=== PATIENT | female | born 1965 | race Caucasian/White ===

== ENCOUNTER 2021-12-12 05:16 | Observation (INO) ==
--- NOTE | 2021-11-21 10:42 | PAT Medication Instructions ---
Medication Instructions Date of Service November 21, 2021 Home Medications bupropion HCl 150 mg 24 hr tablet, extended release (Wellbutrin XL) 150 mg PO HS citalopram 20 mg tablet (Celexa) 20 mg PO HS levothyroxine 150 mcg tablet 150 mcg PO QAM losartan 25 mg tablet (Cozaar) 25 mg PO HS montelukast 10 mg tablet (Singulair) 10 mg PO HS multivitamin 1 tab PO HS vitamin B complex 1 tab PO QPM semaglutide (Ozempic) 0.5 mg SUBCUT .weekly aspirin 81 mg tablet,delayed release 81 mg PO QAM Continue as directed semaglutide (Ozempic) 0.5 mg SUBCUT .weekly Take morning of surgery With a small sip of water, OTHERWISE NOTHING TO EAT OR DRINK AFTER MIDNIGHT: levothyroxine 150 mcg tablet 150 mcg PO QAM aspirin 81 mg tablet,delayed release 81 mg PO QAM (unless surgeon directed otherwise) Take evening before surgery bupropion HCl 150 mg 24 hr tablet, extended release (Wellbutrin XL) 150 mg PO HS citalopram 20 mg tablet (Celexa) 20 mg PO HS losartan 25 mg tablet (Cozaar) 25 mg PO HS montelukast 10 mg tablet (Singulair) 10 mg PO HS multivitamin 1 tab PO HS vitamin B complex 1 tab PO QPM Other Notes If you have any questions please call us at [phone] or [phone] or [phone] or [phone]
--- NOTE | 2021-11-22 09:43 | Anesthesiology Consultation ---
Date of Service November 22, 2021 Assessment & Plan (1) Encounter for pre-operative examination: Chart Review Chart Review: Acceptable Risk for Surgery (pending preop Covid testing results ) and Patient seen in Pre Admission Testing - Check test AM DOS - Check BSG AM DOS Preop Covid testing will be done five days prior to surgery (due to weekend). Pt is also being admitted to hospital and will need Brennan DOS due to possible pt cohorting. Brennan order placed; OR aware. Per PAT appt on 11/21/21, patient denies any recent travel or large group activities. No known Covid positive exposures or Covid related symptoms. No known Covid infection in the past 90 days. Pt is vaccinated for Covid.. Preop Covid testing scheduled 12/07/21 = will await results. Educated on importance of self quarantining, social distancing and wearing mask in public for the patient one week prior to surgery and after Covid testing done Left ankle lateral malleolus ORIF 05/08/19= Done under [facility] with LMA #4. Teaching & Discussion Pre-Anesthesia Teaching/Discussion Notes: Instructed NPO after midnight before surgery,except medications with 15 cc of water. Medication instructions provided according to the PAT guidelines. History Surgery Operation Date: 12/12/21 10:40 Proposed Procedures p Left Total Knee Arthroplasty - Anthony Mast, Height/Weight Height: 5 ft 9 in Weight: 160.7 kg Allergies Allergy/AdvReac Type Severity Reaction Status Date / Time bee venom protein (honey bee) Allergy Severe Anaphylaxis Verified 11/20/21 16:11 Medications Home Medications Medication Instructions Recorded Confirmed Last Taken bupropion HCl 150 mg 24 hr tablet, 150 mg PO HS 05/06/19 11/20/21 05/07/19 22:00 extended release (Wellbutrin XL) citalopram 20 mg tablet (Celexa) 20 mg PO HS 05/06/19 11/20/21 05/07/19 22:00 levothyroxine 150 mcg tablet 150 mcg PO QAM 05/06/19 11/20/21 05/08/19 05:00 losartan 25 mg tablet (Cozaar) 25 mg PO HS 05/06/19 11/20/21 05/07/19 08:00 montelukast 10 mg tablet 10 mg PO HS 10/11/20/21 05/07/19 22:00 (Singulair) multivitamin 1 tab PO HS 05/06/19 11/20/21 05/07/19 22:00 vitamin B complex 1 tab PO QPM 05/06/19 11/20/21 05/07/19 22:00 aspirin 81 mg tablet,delayed 81 mg PO QAM 11/20/21 11/20/21 Unknown release Wheeled Walker #1 ea 11/22/21 11/22/21 Unknown semaglutide 1 mg/dose (4 mg/3 mL) 1 mg SUBCUT .WEEK ml 11/22/21 11/22/21 Unknown subcutaneous pen injector Past Medical History Medical History (Updated 11/22/21 @ 10:10 by Nai Medeiros PA-C) Depression with anxiety GERD (gastroesophageal reflux disease) Well controlled and stable Hypertension Pt denies/has no recollection of HTN- on low dose Losartan for kidney protec tion Hypothyroidism Kidney stones No recent issues DEVIN (obstructive sleep apnea) Mild per recent sleep study per patient- in the process of getting CPAP Osteoarthritis Prediabetes On Ozempic Skin cancer UPPER THIGH AREA- REMOVED Exercise / Class Metabolic Activity III < 4 Walking/Shop/Light housework (ONE FLIGHT OF STIARS- NO CHEST PAIN, MILD SOB ) Past Family History Family History Father Family history of diabetes mellitus Brother Family history of diabetes mellitus Other No family history of adverse response to anesthesia Past Surgical History Surgical History H/O foot surgery RT FOOT PLANTAR FASCIITIS History of arthroscopy LEFT KNEE History of open reduction and internal fixation (ORIF) procedure left ankle History of tooth extraction Nausea and vomiting after administration of anesthetic agent Past Anesthesia History No Hx of Anesthesia Complications (WITH EXCEPTION TO PONV X 1 (WITH KNEE SCOPE)- NO ISSUES WITH 2019 ANKLE SURGERY ) and No Family Hx of Anesthesia Complications (WITH EXCEPTION TO MOTHER- PONV ) History of PONV History of PONV (improved when pre medicated with IV anti-nausea medication ) and Hx of Motion Sickness Social History Smoking Status: Never smoker Do You Dip or Chew Tobacco: No Hx Alcohol Use: Yes Alcohol type: beer and wine alcohol intake frequency: a few times a month Hx Substance Use: No substance use type: does not use Review of Systems Chronic GILLESPIE- stable and mild Hx of sleep study recently- mild DEVIN - in the process of getting a CPAP Patient denies chest pain, shortness of breath at rest, cough, wheezing, palpitations. No hx of seizures, stroke, [place]. No hx of blood clots or blood transfusions Physical Exam Vital Signs VITALS BP 131/89 P 81 TEMP 97.9 SP02 97% RESP 16 Constitutional no acute distress ENMT Mouth: no TMJ clicking Thyromental Distance: > or= 3.5 Finger Breadths (3.5) Mallampati Class: II Four teeth extracted (not enough room in mouth) Neck neck extension not limited Respiratory normal respiratory effort; no respiratory distress Auscultation: lungs clear to auscultation bilaterally; no wheezes Cardiovascular Rate/Rhythm: regular rate and regular rhythm Heart Sounds: no murmur Vessels: no carotid bruit Musculoskeletal Spine: no pain with cervical ROM Extremities: extremities normal to inspection Psychiatric Orientation: alert Lab Results Anesthesia Preop Results Results Anesthesia Widget: WBC 7.70 K/uL (4.8-10.8) 11/22/21 Hgb 14.1 g/dL (12.0-16.0) 11/22/21 Hct 43.1 % (37-47) 11/22/21 Plt 412 K/uL (130-400) H 11/22/21 Na 138 mmol/L (136-145) 11/22/21 K 4.3 mmol/L (3.5-5.1) 11/22/21 Cl 104 mmol/L (98-107) 11/22/21 CO2 28 mmol/L (21-32) 11/22/21 BUN 21 mg/dl (6-23) 11/22/21 Creat 0.98 mg/dl (0.6-1.2) 11/22/21 Glucose Level 98 mg/dl (70-99(Fasting)) 11/22/21 PT 10.5 Seconds (9.0-12.0) 11/22/21 PTT 28.2 Seconds (21.0-31.0) 11/22/21 INR 1.0 (0.9-1.1) 11/22/21 HA1c 5.9 % (4.5-5.6) H 11/22/21 Blood Type B Positive 11/22/21 Antibody Screen NEGATIVE 11/22/21 Testing Electrocardiogram Date: 11/22/21 Findings: + NSR @ (75bpm ) unconfirmed Chest X-Ray Date: 11/22/21 Findings: + NAD
[2021-12-12] MEDS ORDERED: Ketorolac (*for OR use only*) 30 MG, dexAMETHasone 4 MG, KETAMINE HCL (**OR use only) 1... INFIL SCH (06:00)
[2021-12-12] MEDS ORDERED: LR 500ML BOLUS, THEN 15ML/HR IV SCH (06:00)
[2021-12-12] MEDS ORDERED: FAMOTIDINE 20 MG TAB PO SCH (06:00)
[2021-12-12] MEDS ORDERED: ACETAMINOPHEN 500 MG TAB PO SCH (06:00)
[2021-12-12] MEDS ORDERED: LR 60ML/HR IV SCH (06:00)
[2021-12-12] MEDS ORDERED: GABAPENTIN 300 MG CAP PO SCH (06:00)
[2021-12-12] MEDS ORDERED: dexAMETHasone 4 MG TAB PO SCH (06:00)
[2021-12-12] MEDS ORDERED: TRANEXAMIC ACID 1,000 MG **IV Intra-op IV SCH (06:00)
[2021-12-12] MEDS ORDERED: TRANEXAMIC ACID 1,000 MG **IV Pre-op IV SCH (06:00)
[2021-12-12 06:16] LABS: Pregnancy Test, Serum Negative (Negative)
[2021-12-12] MEDS ORDERED: BUPIVACAINE 0.5 % 5 MG/1 ML PF 10ML VIAL ONE (06:20)
[2021-12-12] MEDS ORDERED: ROPIVACAINE 0.5% 5 MG/ML 30 ML VIAL ONE (06:20)
[2021-12-12] MEDS ORDERED: EPINEPHrine INJ 1 MG/ML AMP ONE (06:20)
[2021-12-12] MEDS ORDERED: PROPOFOL IV EMULSION 10 MG/ML 20 ML VIAL IV ONE ×3 (06:25→08:06)
[2021-12-12] MEDS ORDERED: LIDOCAINE 2% 2 ML VIAL/AMP(20MG/ML) INFIL ONE ×2 (06:25→08:06)
[2021-12-12] MEDS ORDERED: MIDAZOLAM HCL 1 MG/ML 2ML VIAL ONE ×2 (06:26→07:23)
[2021-12-12] MEDS ORDERED: fentaNYL citrate 100 MCG/2 ML VIAL ONE (06:26)
[2021-12-12] MEDS ORDERED: PHENYLEPHRINE HCL 10 MG/ML VIAL ONE (06:37)
[2021-12-12] MEDS ORDERED: ORTHO JOINT ANESTHETIC ONE (06:41)
--- NOTE | 2021-12-12 06:43 | History & Physical Bridge Note ---
Date of Service December 12, 2021 History & Physical Bridge Note I have examined the patient, reviewed the History & Physical and in the interval since the performance of the History & Physical I have noted the following changes of clinical significance: no changes noted
[2021-12-12] MEDS ORDERED: ePHEDrine sulfate 50 MG/ML AMP IV PRN (07:45)
[2021-12-12] MEDS ORDERED: fentaNYL citrate 100 MCG/2 ML VIAL IV PRN (07:45)
[2021-12-12] MEDS ORDERED: LABETALOL HCL IV 5 MG/ML 20ML IV PRN (07:45)
[2021-12-12] MEDS ORDERED: ATROPINE SULFATE 0.1 MG/ML 10ML SYR IV PRN (07:45)
[2021-12-12] MEDS ORDERED: HYDROmorphone INJ 1 MG/ML SYRINGE IV PRN (07:45)
[2021-12-12] MEDS ORDERED: ONDANSETRON INJ 2 MG/ML 2 ML VIAL IV PRN ×2 (07:45→09:58)
[2021-12-12] MEDS ORDERED: PHENYLEPHRINE 100MCG/ML 5ML SYR IV PRN (07:45)
[2021-12-12] MEDS ORDERED: GLYCOPYRROLATE 0.2 MG/ML VIAL ONE (08:06)
--- NOTE | 2021-12-12 08:34 | Operative Report ---
PG Post Operative Report Pre & Post Diagnosis Operation Date: 12/12/21 07:00 Pre-Op Diagnosis: Degenerative Joint Disease Left Knee Post-Op Diagnosis: Degenerative Joint Disease Left Knee I identified the patient and participated in the time-out.: Yes Procedure Operation Date: 12/12/21 07:00 Actual Procedures p Left Total Knee Arthroplasty(Left) - Anthony Mast DO Surgeon Anthony Mast DO Insurance Operations Rep Anthony Piedra PAC Estimated Blood Loss 10 Findings Consistent with Post-Op Diagnosis Specimens Left femoral and tibial bone Complications none Disposition Disposition: Recovery Room Indications Amaris is a pleasant 56-year-old female who is dealing with chronic increasing left knee pain. X-rays and clinical examination were diagnostic for advanced osteoarthritis of the left knee. After failing conservative treatment, she elected proceed with a left total knee arthroplasty. Description of Procedure Implants used: I used a Alber Persona total knee arthroplasty system with a size 9 standard PS femur, E tibia with a 30 mm stem extension, 31 round patella, and a size 12 CPS polyethylene bearing. All components were cemented in place with Biomet cement. Amaris arrived [facility] for the above procedure. She was seen in the preoperative holding area and the operative extremity was identified and signed. She was given a preoperative antibiotic, TXA, a spinal anesthetic and an adductor nerve block. She was taken back to the operating room and laid on the table in supine position. She was given basic sedation. The operative knee was then prepped and draped in sterile fashion. A timeout was done, and the patient and the operative extremity was properly identified. A midline incision was made directly over the patella. Dissection was taken down to the extensor mechanism. A subvastus arthrotomy was used. The medial retinaculum was released and the fat pad was mostly excised. The knee was flexed and the ACL, PCL, and meniscus were removed. A drill was sent down the center of the femoral canal followed by an intramedullary vandana. Off that vandana a distal femoral cutting block was placed. 9 mm was resected off the distal femur at 5 of valgus. A posterior referencing AP sizing guide was then placed on the distal femur. The femur measured to be a size 9. 2 drill holes were placed in 3 of external rotation. A 4-in-1 cutting block was then impacted into place. Anterior, posterior, and chamfer cuts were then made. The proximal tibia was then exposed. An external tibial alignment guide was placed. A tibial cut guide was then anchored in place and the proximal tibia was then resected. The posterior aspect of the knee was then opened up and any additional meniscus fragments and osteophytes were removed. The tibia measured to be a size E. The tibial plate was then placed in the appropriate rotation and the tibia was drilled and punched. Trial components were then placed. I used a size 12 CPS polyethylene insert. The knee was brought through a full range of motion and felt to be stable. The peg holes for the femoral component were then drilled. The patella was then everted and 9 mm was resected off the posterior aspect of the patella. The patella measured to be a size 31. 3 peg holes were then drilled. A trial patella was placed. The knee was once again brought through a full range of motion and felt to be sta ble. Trial components were then removed. The surrounding soft tissues were injected with 100 cc of an orthopedic pain control cocktail. All components were then cemented into place with Biomet cement. The final polyethylene insert was then snapped into place. Once cement was dry the tourniquet was deflated. Hemostasis was obtained. A dilute betadyne lavage was then done for 3 minutes. The joint was then irrigated with normal saline solution. The subvastus arthrotomy was then closed with #1 Vicryl suture. The skin was closed with 2-0 Vicryl, 3-0V lock suture, and katia. A soft compressive dressing was placed. She was then transferred to a hospital bed and taken to the postanesthesia care unit in stable condition. She tolerated the procedure well. Anthony Piedra PA-C, was present for the entire procedure. He was critical for patient positioning, prepping, draping, retraction exposure, wound closure and application of sterile dressing. I attest to the content of the Intraoperative Record and any orders documented therein. Any exceptions are noted below.
--- NOTE | 2021-12-12 09:18 | Anesthesiology Progress Note ---
Date of Service December 12, 2021 Anesthesia Post Procedure Vital Signs Vital Signs: Temp Pulse Pulse Resp BP Pulse Ox 12/12/21 09:15 81 17 106/65 95 12/12/21 09:05 92 H 16 128/66 95 12/12/21 08:57 36.3 C L 100 H 18 103/62 97 12/12/21 05:44 37 C 106 H 20 145/88 H 96 Transfer of Care Handoff Completed per policy Notes Mental Status: alert / awake / arousable Patient Amnestic to Procedure: Yes Nausea / Vomiting: adequately controlled Pain: adequately controlled Airway Patency, RR, SpO2: stable & adequate BP & HR: stable & adequate Hydration State: stable & adequate Neuraxial Anesthesia: was administered and sensory block is resolving Anesthetic Complications: no major complications apparent and Pt Satisfied with anesthetic care
--- NOTE | 2021-12-12 09:19 | XRay Report ---
XR knee LT 1 or 2V routine CLINICAL HISTORY: Surgical Post Op TECHNIQUE: 2 views of the left knee were obtained. Comparison: Comparison is made to femur radiograph 08/31/2012 FINDINGS: Patient is status post total knee arthroplasty with expected postsurgical changes including soft tiss ue swelling, subcutaneous emphysema, and surgical staple placement. No periarticular lucency or hardw are fracture is seen IMPRESSION: Expected postoperative appearance status post total knee arthroplasty. ACT 112: Negative or not required by law. Electronically signed by: Mehdi Woodruff M.D. 12/12/2021 9:18 AM
[2021-12-12] MEDS ORDERED: KETAMINE 50 MG/5 ML SYRINGE ONE (09:57)
[2021-12-12] MEDS ORDERED: METOCLOPRAMIDE HCL INJ 5 MG/ML 2 ML VIAL IV PRN (09:58)
[2021-12-12] MEDS ORDERED: HYDROmorphone INJ 0.5 MG/0.5 ML SYR IV PRN (09:58)
[2021-12-12] MEDS ORDERED: MAGNESIUM HYDROXIDE SUSP 30 ML UDC PO PRN (09:58)
[2021-12-12] MEDS ORDERED: bisacodyL 10 MG SUPP PR PRN (09:58)
[2021-12-12] MEDS ORDERED: NALOXONE HCL 0.4 MG/1 ML VIAL/CARP IV PRN (09:58)
[2021-12-12] MEDS: SODIUM CHLORIDE 0.9% 1000ML 1,000 ML IV SCH ×2 (10:18→19:52)
[2021-12-12] MEDS: DOCUSATE SODIUM 100 MG CAP PO SCH ×2 (11:23→22:03)
[2021-12-12] MEDS: MULTIVITAMIN TAB PO SCH (11:23)
[2021-12-12] MEDS: KETOROLAC 30 MG/ML VIAL IV SCH ×3 (11:24→23:37)
[2021-12-12] MEDS: ACETAMINOPHEN 500 MG TAB PO SCH ×2 (13:17→21:57)
[2021-12-12] MEDS: ceFAZolin 2000MG 2,000 MG/15 ML SYR IV SCH ×2 (15:47→23:38)
[2021-12-12] MEDS ORDERED: SENNA 8.6 MG TAB PO SCH (21:00)
[2021-12-12] MEDS ORDERED: LOSARTAN POTASSIUM 25 MG TAB PO SCH (21:00)
[2021-12-12] MEDS ORDERED: buPROPion XL 150 MG TABCR PO SCH (21:00)
[2021-12-12] MEDS ORDERED: CITALOPRAM 20 MG TAB PO SCH (21:00)
[2021-12-12] MEDS ORDERED: MONTELUKAST SODIUM 10 MG TABLET PO SCH (21:00)
[2021-12-12] MEDS: oxyCODONE HCL IR 5 MG TAB (IMMEDIATE RELEASE) PO PRN (23:37)
[2021-12-13] MEDS: KETOROLAC 30 MG/ML VIAL IV SCH (05:05)
[2021-12-13] MEDS: ACETAMINOPHEN 500 MG TAB PO SCH (05:05)
[2021-12-13] MEDS ORDERED: LEVOTHYROXINE SODIUM 150 MCG TABLET PO SCH (06:30)
--- NOTE | 2021-12-13 06:38 | Orthopedic Progress Note ---
Date of Service December 13, 2021 Assessment & Plan (1) Status post left knee replacement: Overall she is doing fairly well. She is not having much pain in the left knee. She is on aspirin for DVT prophylaxis. She will be seen by physical therapy today for ambulation and range of motion exercises. She can be discharged home later today. She will follow-up with orthopedics in 2 weeks. Josh Glez was seen and examined at bedside this morning. Overall she is doing fairly well. She is not having much pain in the left knee. She has been up and ambulating in the hallways. She has no complaints. Review of Systems All systems reviewed & are unremarkable except as noted in HPI & below. Physical Exam On physical examination of the left knee, the dressing is clean and dry. Her leg is out in full extension. She has active dorsiflexion plantarflexion of her left ankle.. Results & Data Results & Data Laboratory Results . Diagnostic Findings Postoperative x-rays of the left knee show the prosthesis to be in anatomic alignment without any evidence of fracture, desiccation, or loosening. PG Care Time/CCT Total # of Minutes Spent Total Time Spent with Patient: Total time spent is greater than 50% in coordination of care (as documented) at patient's floor/unit and/or counseling patient: Coding Level of Care Code 43023 Post Operative Follow-Up Diagnoses Status post left knee replacement Z96.652
--- NOTE | 2021-12-13 06:39 | Discharge Summary ---
Date of Service December 13, 2021 Principal Diagnosis Same as "Discharge Diagnosis" noted below under Discharge Instructions. Discharge Exam On physical examination of the left knee, the dressing is clean and dry. Her leg is out in full extension. She has active dorsiflexion plantarflexion of her left ankle.. Discharge Data Procedures Performed Operation Date: 12/12/21 07:00 Actual Procedures p Left Total Knee Arthroplasty(Left) - Anthony Mast DO Ordered Studies 12/12/21 05:00 US - OR guided needle placemen Routine Hospital Course (1) Status post left knee replacement: On December 12, 2021 Amaris arrived at [facility] and underwent a left knee replacement without complication. She had a spinal anesthetic. Postoperatively she was started on aspirin for DVT prophylaxis and transferred to the general orthopedic floors. Her hospital course was uneventful. On postop day #1, her vital signs are stable and her pain was well controlled. She was able to participate well with physical therapy doing ambulation and range of motion exercises. She was then discharged home. She will follow-up with orthopedics in 2 weeks. PG Care Time/CCT Total # of Minutes Spent Total Time Spent with Patient: Total time spent is greater than 50% in coordination of care (as documented) at patient's floor/unit and/or counseling patient: Discharge Plan Discharge Items Patient Disposition: Home - Home Health Services Reason For Visit: DJD Left Knee Discharge Diagnosis: Left knee replacement Activity: As commented below Non-emergency contact: Surgeon Call non-emergency contact if: your wound has increased redness and your wound has increased drainage Follow-up/Referrals: Familia Cox MD [Primary Care Provider] - Diet: Regular Addtl Attending Provider Instructions: Activity and Therapy Recommendations: * If you are using [facility] then therapy will be provided at your home until they feel you have accomplished all of your goals. * If you are using [facility] then Physical Therapy will be provided until they feel you are ready to start Outpatient Physical Therapy. * If you are not using home therapy then Outpatient Physical Therapy should start about 3-5 days from your day of surgery. Therapy will last about 6-10 weeks * It is important not to put a pillow under your knee when you are relaxing or sleeping. It is just as important to make sure you are getting your knee perfectly straight as it is to regain your knee bend. * You were shown a series of exercises in the hospital. Do these exercises three times each day including the exercises you were shown in physical therapy. * Get up and walk several times each day. For the first four weeks, try not to stand or walk for more than one hour at a time. If you do stand or walk for more than one hour, you will not hurt anything, but your leg will likely swell. * As you feel comfortable, you may change from the walker or crutches to a cane and then to independent walking. Medications: * Narcotic You will likely be sent home from the hospital with a prescription for the narcotic pain medication that worked best throughout your stay. * Aspirin Most patients will be required to take Aspirin 81mg twice a day for 6 weeks after surgery. This is obtained [id number] and a prescription is not necessary. * Other medications may be prescribed for specific circumstances. If you have any questions, please call the office at . * Resume previous home medications unless otherwise instructed TEDs/Elastic Stockings: The white elastic stockings help limit swelling and prevent blood clots from f orming in your legs.~ The more you wear them, the more they work. Wear them for six weeks. Dressing Care: The dressing can be changed after physical therapy on postop day #1. Daily dry dressing changes for a few days, especially if the incision is still draining some. If the incision is not draining then you may leave the katia open to air. If there is a little bit of drainage or if the katia are getting stuck on your clothing then cover the incision with a dry dressing. The katia will be removed at your 2 week follow-up appointment. Showering: You may shower 5 days from the day of surgery as long as the incision is no longer draining. You may shower with the katia exposed. Let soapy water run over the katia and pat them dry. Do not scrub or soak the incision. Things To Watch For: * Drainage from the incision site that occurs more than one week after your surgery. * Increased redness at the incision site. * Fever above 102 degrees Fahrenheit. * Unusual chest pain or shortness of breath. * Call [facility] at with any of the above problems Follow-Up Visit: Follow-up with Dr. Mast's PA (Anthony Piedra) 2-3 weeks after your day of surgery. He will remove your katia and answer any questions. If you have any additional questions or concerns, Dr aMst is usually in the office at the same time and will be available An appointment was probably scheduled when you signed-up for surgery in the office. If you have any questions call Office Instructions: More detailed instructions as well as Frequently Asked Questions were provided in a folder by our office when you signed-up for surgery. Please review these instructions when you get home. If you have any further questions or concerns, please feel free to call the office at [phone] Pending Studies at Discharge: No Stand-Alone Forms: [facility] Medications and DC Order Prescriptions: New oxycodone-acetaminophen 5-325 mg tablet 1 tab PO Q6H PRN (Reason: pain) Qty: 30 RF: 0 celecoxib [Celebrex] 200 mg capsule 200 mg PO BID Qty: 28 RF: 0 Continued (DME) Juanjo Walker Misc See Rx Instructions .MEDSUPPLY Qty: 1 RF: 0 semaglutide 1 mg/dose (4 mg/3 mL) pen injector 1 mg subcut .WEEK RF: 0 multivitamin Tablet 1 tab PO HS RF: 0 citalopram [Celexa] 20 mg tablet 20 mg PO HS RF: 0 levothyroxine 150 mcg tablet 150 mcg PO QAM RF: 0 losartan [Cozaar] 25 mg tablet 25 mg PO HS RF: 0 vitamin B complex Tablet 1 tab PO QPM RF: 0 montelukast [Singulair] 10 mg tablet 10 mg PO HS RF: 0 bupropion HCl [Wellbutrin XL] 150 mg tablet extended release 24 hr 150 mg PO HS RF: 0 aspirin 81 mg tablet,delayed release (DR/EC) 81 mg PO BID 42 Days Qty: 0 RF: 0 Discharge Orders: Discharge Order (Routine); Ordered 12/13/21 Ordered By: Anthony Mast Admission Data Admit Date/Time: 12/12/21 09:00 Attending Provider: Anthony Mast Admit Provider: Anthony Mast Primary Care Provider: Familia Cox
[2021-12-13] MEDS: oxyCODONE HCL IR 5 MG TAB (IMMEDIATE RELEASE) PO PRN (07:57)
[2021-12-13] MEDS: MULTIVITAMIN TAB PO SCH (07:59)
[2021-12-13] MEDS ORDERED: dexAMETHasone 4 MG TAB PO SCH (08:00)
[2021-12-13] MEDS ORDERED: ASPIRIN 81 MG ECTAB PO SCH (09:00)
[2021-12-13] MEDS: DOCUSATE SODIUM 100 MG CAP PO SCH (10:20)
== END 2021-12-13 12:49 | disposition home health service (06) ==
LOC: ASU 05:16 → 3E 05:16

== ENCOUNTER 2022-05-04 05:36 | Observation (INO) ==
--- NOTE | 2022-04-27 14:18 | Anesthesiology Consultation ---
Date of Service April 27, 2022 Assessment & Plan (1) Encounter for pre-operative examination: Chart Review Chart Review: Acceptable Risk for Surgery other knee done in November History Surgery Operation Date: 05/04/22 08:10 Proposed Procedures p Right Total Knee Arthroplasty - Anthony Mast, Height/Weight Height: 5 ft 7.5 in Weight: 149.685 kg Allergies Allergy/AdvReac Type Severity Reaction Status Date / Time bee venom protein (honey bee) Allergy Severe Anaphylaxis Verified 04/27/22 12:23 Medications Home Medications Medication Instructions Recorded Confirmed Last Taken bupropion HCl 150 mg 24 hr tablet, 150 mg PO HS 05/06/19 04/27/22 12/11/21 21:00 extended release (Wellbutrin XL) citalopram 20 mg tablet (Celexa) 20 mg PO HS 05/06/19 04/27/22 12/11/21 21:00 levothyroxine 150 mcg tablet 150 mcg PO QAM 05/06/19 04/27/22 12/12/21 04:00 losartan 25 mg tablet (Cozaar) 25 mg PO HS 05/06/19 04/27/22 12/11/21 21:00 montelukast 10 mg tablet 10 mg PO HS 05/06/19 04/27/22 12/11/21 21:00 (Singulair) multivitamin 1 tab PO HS 05/06/19 04/27/22 12/11/21 21:00 vitamin B complex 1 tab PO QPM 05/06/19 04/27/22 12/11/21 21:00 semaglutide 1 mg/dose (4 mg/3 mL) 1 mg subcut .WEEK 11/22/21 04/27/22 12/10/21 18:00 subcutaneous pen injector Wheeled Walker #1 ea 11/24/21 01/10/22 Unknown aspirin 81 mg tablet,delayed 81 mg PO BID 42 days #0 tabs 12/13/21 04/27/22 12/12/21 04:00 release Past Medical History Medical History Depression with anxiety GERD (gastroesophageal reflux disease) History of kidney stones Hypertension Pt denies/has no recollection of HTN- on low dose Losartan for kidney protection Hypothyroidism Morbid obesity DEVIN (obstructive sleep apnea) cpap>using device Osteoarthritis Prediabetes On Ozempic Skin cancer UPPER THIGH AREA- REMOVED Past Family History Family History Father Family history of diabetes mellitus Brother Family history of diabetes mellitus Other No family history of adverse response to anesthesia Past Surgical History Surgical History H/O foot surgery RT FOOT PLANTAR FASCIITIS History of arthroscopy LEFT KNEE History of open reduction and internal fixation (ORIF) procedure left ankle History of tooth extraction History of total knee replacement left Nausea and vomiting after administration of anesthetic agent Social History Smoking Status: Never smoker Hx Alcohol Use: Yes Alcohol type: beer and wine alcohol intake frequency: a few times a month substance use type: does not use Testing Laboratory Results Laboratory Tests 11/22/21 04/11/22 04/11/22 10:15 08:50 08:50 Hgb 14.5 Plt Count 365 Potassium 4.3 Creatinine 1.02 Hemoglobin A1c 5.9 H Electrocardiogram Date: 11/22/21 Findings: + NSR @ (75)
[2022-05-04] MEDS ORDERED: ACETAMINOPHEN 500 MG TAB PO SCH (06:00)
[2022-05-04] MEDS ORDERED: dexAMETHasone 4 MG TAB PO SCH (06:00)
[2022-05-04] MEDS ORDERED: TRANEXAMIC ACID 1,000 MG **IV Intra-op IV SCH (06:00)
[2022-05-04] MEDS ORDERED: ORTHO JOINT MIX INFIL SCH (06:00)
[2022-05-04] MEDS ORDERED: GABAPENTIN 300 MG CAP PO SCH (06:00)
[2022-05-04] MEDS ORDERED: LR 500ML BOLUS, THEN 15ML/HR IV SCH (06:00)
[2022-05-04] MEDS ORDERED: TRANEXAMIC ACID 1,000 MG **IV Pre-op IV SCH (06:00)
[2022-05-04] MEDS ORDERED: FAMOTIDINE 20 MG TAB PO SCH (06:00)
[2022-05-04] MEDS ORDERED: LR 60ML/HR IV SCH (06:00)
[2022-05-04] MEDS ORDERED: BUPIVACAINE 0.5 % 5 MG/1 ML PF 10ML VIAL ONE (06:31)
[2022-05-04] MEDS ORDERED: ROPIVACAINE 0.5% 5 MG/ML 30 ML VIAL ONE (06:31)
--- NOTE | 2022-05-04 06:40 | History & Physical Bridge Note ---
Date of Service May 04, 2022 History & Physical Bridge Note I have examined the patient, reviewed the History & Physical and in the interval since the performance of the History & Physical I have noted the following changes of clinical significance: no changes noted
[2022-05-04] MEDS ORDERED: ORTHO JOINT ANESTHETIC ONE (06:59)
[2022-05-04] MEDS ORDERED: MIDAZOLAM HCL 1 MG/ML 2ML VIAL ONE ×3 (07:02→08:09)
[2022-05-04] MEDS ORDERED: KETAMINE 50 MG/5 ML SYRINGE ONE (07:03)
[2022-05-04] MEDS ORDERED: fentaNYL citrate 100 MCG/2 ML VIAL ONE (07:03)
[2022-05-04] MEDS ORDERED: PROMETHAZINE HCL INJ 25 MG/ML 1 ML VIAL ONE (07:08)
[2022-05-04] MEDS ORDERED: HYDROmorphone INJ 2 MG/ML SYR/VIAL IV PRN (08:04)
[2022-05-04] MEDS ORDERED: ONDANSETRON INJ 2 MG/ML 2 ML VIAL IV PRN ×2 (08:04→11:24)
[2022-05-04] MEDS ORDERED: ePHEDrine sulfate 50 MG/ML AMP IV PRN (08:04)
[2022-05-04] MEDS ORDERED: ATROPINE SULFATE 0.1 MG/ML 10ML SYR IV PRN (08:04)
[2022-05-04] MEDS ORDERED: fentaNYL citrate 100 MCG/2 ML VIAL IV PRN (08:04)
[2022-05-04] MEDS ORDERED: GLYCOPYRROLATE 0.2 MG/ML VIAL ONE (08:41)
[2022-05-04] MEDS ORDERED: ONDANSETRON INJ 2 MG/ML 2 ML VIAL ONE (08:41)
[2022-05-04] MEDS ORDERED: PROPOFOL IV EMULSION 10 MG/ML 20 ML VIAL IV ONE ×2 (08:41→09:10)
--- NOTE | 2022-05-04 09:17 | Operative Report ---
PG Post Operative Report Pre & Post Diagnosis Operation Date: 05/04/22 08:10 Pre-Op Diagnosis: Degenerative Joint Disease Right Knee Post-Op Diagnosis: Degenerative Joint Disease Right Knee I identified the patient and participated in the time-out.: Yes Procedure Operation Date: 05/04/22 08:10 Actual Procedures p Right Total Knee Arthroplasty(Right) - Anthony Mast DO Surgeon Anthony Mast DO Contracts Administrator Anthony Piedra PA-C Estimated Blood Loss 20 Findings Consistent with Post-Op Diagnosis Specimens Right femoral and tibial bone Description of Procedure Implants used: I used a Alber Persona total knee arthroplasty system with a size 9 standard PS femur, D tibia with a 30 mm stem extension, 31 oval patella, and a size 12 CPS polyethylene bearing. All components were cemented in place with Biomet cement. Amaris arrived [facility] for the above procedure. She was seen in the preoperative holding area and the operative extremity was identified and signed. She was given a preoperative antibiotic, TXA, a spinal anesthetic and an adductor nerve block. She was taken back to the operating room and laid on the table in supine position. She was given basic sedation. The operative knee was then prepped and draped in sterile fashion. A timeout was done, and the patient and the operative extremity was properly identified. A midline incision was made directly over the patella. Dissection was taken down to the extensor mechanism. A subvastus arthrotomy was used. The medial retinaculum was released and the fat pad was mostly excised. The knee was flexed and the ACL, PCL, and meniscus were removed. A drill was sent down the center of the femoral canal followed by an intramedul elizabeth vandana. Off that vandana a distal femoral cutting block was placed. 9 mm was resected off the distal femur at 5 of valgus. A posterior referencing AP sizing guide was then placed on the distal femur. The femur measured to be a size 9. 2 drill holes were placed in 3 of external rotation. A 4-in-1 cutting block was then impacted into place. Anterior, posterior, and chamfer cuts were then made. The proximal tibia was then exposed. An external tibial alignment guide was placed. A tibial cut guide was then anchored in place and the proximal tibia was then resected. The posterior aspect of the knee was then opened up and any additional meniscus fragments and osteophytes were removed. The tibia measured to be a size D. The tibial plate was then placed in the appropriate rotation and the tibia was drilled and punched. Trial components were then placed. I used a size 12 CPS polyethylene insert. The knee was brought through a full range of motion and felt to be stable. The peg holes for the femoral component were then drilled. The patella was then everted and 9 mm was resected off the posterior aspect of the patella. The patella measured to be a size 31 oval. 3 peg holes were then drilled. A trial patella was placed. The knee was once again brought through a full range of motion and felt to be stable. Trial components were then removed. The surrounding soft tissues were injected with 100 cc of an orthopedic pain control cocktail. All components were then cemented into place with Biomet cement. The final polyethylene insert was then snapped into place. Once cement was dry the tourniquet was deflated. Hemostasis was obtained. A dilute betadyne lavage was then done for 3 minutes. The joint was then irrigated with normal saline solution. The subvastus arthrotomy was then closed with #1 Vicryl suture. The skin was closed with 2-0 Vicryl, 3-0V lock suture, and katia. A soft compressive dressing was placed. She was then transferred to a hospital bed and taken to the postanesthesia care unit in stable condition. She tolerated the procedure well. Anthony Piedra PA-C, was present for the entire procedure. He was critical for patient positioning, prepping, draping, retraction exposure, wound closure and application of sterile dressing. I attest to the content of the Intraoperative Record and any orders documented therein. Any exceptions are noted below.
--- NOTE | 2022-05-04 10:16 | Anesthesiology Progress Note ---
Date of Service May 04, 2022 Anesthesia Post Procedure Vital Signs Vital Signs: Temp Pulse Resp BP Pulse Ox O2 Del Method O2 Flow Rate 05/04/22 10:10 36.4 C L 68 17 116/78 96 Nasal Cannula 2 05/04/22 10:00 71 18 137/75 96 Oxymask 5 05/04/22 09:50 76 18 146/64 H 95 Oxymask 5 05/04/22 09:43 36.1 C L 84 18 137/73 95 Oxymask 5 05/04/22 06:09 36.7 C 100 H 20 144/87 H 95 Room Air Pain Intensity Right Leg: Pain Intensity: 3 Transfer of Care Handoff Completed per policy Notes Mental Status: alert / awake / arousable and participated in evaluation Patient Amnestic to Procedure: Yes Nausea / Vomiting: adequately controlled Pain: adequately controlled Airway Patency, RR, SpO2: stable & adequate BP & HR: stable & adequate Hydration State: stable & adequate Anesthetic Complications: no major complications apparent and Pt Satisfied with anesthetic care
--- NOTE | 2022-05-04 11:15 | XRay Report ---
RIGHT KNEE 2 VIEWS History: Right total knee arthroplasty. Degenerative arthritis. Postop. FINDINGS: The patient is status post a right total knee arthroplasty. The hardware is intact. No frac ture or dislocation. Skin katia are in place. IMPRESSION: Right total knee arthroplasty. No evidence for hardware complication. ACT 112: Negative or not required by law. Electronically signed by: Octavio Arreaga M.D. 05/04/2022 11:13 AM
[2022-05-04] MEDS ORDERED: HYDROmorphone INJ 0.5 MG/0.5 ML SYR IV PRN (11:24)
[2022-05-04] MEDS ORDERED: oxyCODONE HCL IR 5 MG TAB (IMMEDIATE RELEASE) PO PRN (11:24)
[2022-05-04] MEDS ORDERED: NALOXONE HCL 0.4 MG/1 ML VIAL/CARP IV PRN (11:24)
[2022-05-04] MEDS ORDERED: ZOLPIDEM TARTRATE 5 MG TAB PO PRN (11:24)
[2022-05-04] MEDS ORDERED: bisacodyL 10 MG SUPP PR PRN (11:24)
[2022-05-04] MEDS ORDERED: METOCLOPRAMIDE HCL INJ 5 MG/ML 2 ML VIAL IV PRN (11:24)
[2022-05-04] MEDS ORDERED: MAGNESIUM HYDROXIDE SUSP 30 ML UDC PO PRN (11:24)
[2022-05-04] MEDS: SODIUM CHLORIDE 0.9% 1000ML 1,000 ML IV SCH ×2 (11:46→21:20)
[2022-05-04] MEDS: KETOROLAC 30 MG/ML VIAL IV SCH ×3 (12:25→23:06)
[2022-05-04] MEDS: ACETAMINOPHEN 500 MG TAB PO SCH ×2 (14:08→21:25)
[2022-05-04] MEDS: ceFAZolin 2000MG 2,000 MG/15 ML SYR IV SCH ×2 (15:54→23:05)
[2022-05-04] MEDS ORDERED: CITALOPRAM 20 MG TAB PO SCH (21:00)
[2022-05-04] MEDS ORDERED: buPROPion XL 150 MG TABCR PO SCH (21:00)
[2022-05-04] MEDS ORDERED: LOSARTAN POTASSIUM 25 MG TAB PO SCH (21:00)
[2022-05-04] MEDS ORDERED: SENNA 8.6 MG TAB PO SCH (21:00)
[2022-05-04] MEDS ORDERED: MONTELUKAST SODIUM 10 MG TABLET PO SCH (21:00)
[2022-05-04] MEDS: ASPIRIN 81 MG ECTAB PO SCH (21:24)
[2022-05-04] MEDS: DOCUSATE SODIUM 100 MG CAP PO SCH (21:25)
[2022-05-05] MEDS: KETOROLAC 30 MG/ML VIAL IV SCH (05:29)
[2022-05-05] MEDS: ACETAMINOPHEN 500 MG TAB PO SCH ×2 (05:30→13:34)
--- NOTE | 2022-05-05 07:18 | Orthopedic Progress Note ---
Date of Service May 05, 2022 Assessment & Plan (1) Status post right knee replacement: Overall she is doing fairly well with her right knee. Unfortunately, she is dealing with some right leg radicular symptoms. I want her started on gabapentin and give her a titrating dose to take home. I am also going to give her a Medrol Dosepak and give her a dose of Decadron here in the hospital. She will be seen by physical therapy today for ambulation and range of motion exercises. She is on aspirin for DVT prophylaxis. If she is comfortable, she can be discharged home later today. She will follow with orthopedics in 2 weeks. Josh Glez was seen and examined at bedside this morning. She is doing fairly well with her right knee but she is having a lot of radicular pain down her right leg. She has been up and ambulating to the bathroom. She has no other complaints.. Review of Systems All systems reviewed & are unremarkable except as noted in HPI & below. Physical Exam On physical examination of the right knee, the dressing is clean and dry. Her leg is out full extension. She has active dorsiflexion plantarflexion of her right ankle.. Results & Data Results & Data Laboratory Results . Diagnostic Findings Postoperative x-rays of the right knee show the prosthesis to be in anatomic alignment without any evidence of fracture, screws, or loosening. PG Care Time/CCT Total # of Minutes Spent Total Time Spent with Patient: Total time spent is greater than 50% in coordination of care (as documented) at patient's floor/unit and/or counseling patient: Coding Level of Care Code 99824 Post Operative Follow-Up Diagnoses Status post right knee replacement Z96.651
[2022-05-05] MEDS ORDERED: dexAMETHasone 8 MG in SYRINGE 0 ML IV ONE (07:20)
--- NOTE | 2022-05-05 07:20 | Discharge Summary ---
Date of Service May 05, 2022 Principal Diagnosis Same as "Discharge Diagnosis" noted below under Discharge Instructions. Discharge Exam On physical examination of the right knee, the dressing is clean and dry. Her leg is out full extension. She has active dorsiflexion plantarflexion of her right ankle.. Discharge Data Procedures Performed Operation Date: 05/04/22 08:10 Actual Procedures p Right Total Knee Arthroplasty(Right) - Anthony Mast DO Ordered Studies 05/04/22 05:00 US - OR guided needle placemen Routine Hospital Course (1) Status post right knee replacement: On May 05, 2022 Amaris arrived at [facility] and underwent a right knee replacement without complication. She had a spinal anesthetic. Postoperatively she was started on aspirin for DVT prophylaxis and transferred to the general orthopedic floors. Her hospital course was relatively uneventful. On postop day #1 her vital signs were stable and her knee pain was well controlled. She was complaining of some radicular low back pain. She was given additional dose of Decadron and started on a titrating dose of gabapentin. She was able to participate well with physical therapy doing ambulation and range of motion exercises. She was then discharged home. She will follow-up with orthopedics in 2 weeks. PG Care Time/CCT Total # of Minutes Spent Total Time Spent with Patient: Total time spent is greater than 50% in coordination of care (as documented) at patient's floor/unit and/or counseling patient: Discharge Plan Discharge Items Patient Disposition: Home - Home Health Services Reason For Visit: POST OP Discharge Diagnosis: Right knee replacement Activity: Per Instructions section Non-emergency contact: Surgeon Call non-emergency contact if: your wound has increased redness and your wound pain has increased Follow-up/Referrals: Familia Cox MD [Primary Care Provider] - Diet: Regular Addtl Attending Provider Instructions: Activity and Therapy Recommendations: * If you are using [facility] then therapy will be provided at your home until they feel you have accomplished all of your goals. * If you are using [facility] then Physical Therapy will be provided until they feel you are ready to start Outpatient Physical Therapy. * If you are not using home therapy then Outpatient Physical Therapy should start about 3-5 days from your day of surgery. Therapy will last about 6-10 weeks * It is important not to put a pillow under your knee when you are relaxing or sleeping. It is just as important to make sure you are getting your knee perfectly straight as it is to regain your knee bend. * You were shown a series of exercises in the hospital. Do these exercises three times each day including the exercises you were shown in physical therapy. * Get up and walk several times each day. For the first four weeks, try not to stand or walk for more than one hour at a time. If you do stand or walk for more than one hour, you will not hurt anything, but your leg will likely swell. * As you feel comfortable, you may change from the walker or crutches to a cane and then to independent walking. Medications: * Narcotic You will likely be sent home from the hospital with a prescription for the narcotic pain medication that worked best throughout your stay. * Aspirin Most patients will be required to take Aspirin 81mg twice a day for 6 weeks after surgery. This is obtained [id number] and a prescription is not necessary. * Other medications may be prescribed for specific circumstances. If you have any questions, please call the office at . * Resume previous home medications unless otherwise instructed TEDs/Elastic Stockings: The white elastic stockings help limit swelling and prevent blood clots from forming in your legs.~ The more you wear them, the more they work. Wear them for six weeks. Dressing Care: The dressing can be changed after physical therapy on postop day #1. Daily dry dressing changes for a few days, especially if the incision is still draining some. If the incision is not draining then you may leave the katia open to air. If there is a little bit of drainage or if the katia are getting stuck on your clothing then cover the incision with a dry dressing. The katia will be removed at your 2 week follow-up appointment. Showering: You may shower 5 days from the day of surgery as long as the incision is no longer draining. You may shower with the katia exposed. Let soapy water run over the katia and pat them dry. Do not scrub or soak the incision. Things To Watch For: * Drainage from the incision site that occurs more than one week after your surgery. * Increased redness at the incision site. * Fever above 102 degrees Fahrenheit. * Unusual chest pain or shortness of breath. * Call [facility] at with any of the above problems Follow-Up Visit: Follow-up with Dr. Mast's PA (Anthony Piedra) 2-3 weeks after your day of surgery. He will remove your katia and answer any questions. If you have any additional questions or concerns, Dr Mast is usually in the office at the same time and will be available An appointment was probably scheduled when you signed-up for surgery in the office. If you have any questions call Office Instructions: More detailed instructions as well as Frequently Asked Questions were provided in a folder by our office when you signed-up for surgery. Please review these instructions when you get home. If you have any further questions or concerns, please feel free to call the office at [phone] Pending Studies at Discharge: No Stand-Alone Forms: [facility] Medications and DC Order Prescriptions: New oxycodone-acetaminophen 5-325 mg tablet 1 tab PO Q6H PRN (Reason: pain) Qty: 30 0RF methylprednisolone [Medrol (Joel)] 4 mg tablets,dose pack 4 mg PO DAILY Qty: 21 0RF gabapentin 100 mg capsule 100 mg PO Q8H Qty: 90 0RF Rx Instructions: Take 100 mg 3 times a day for 3 days Then take 200 mg 3 times a day for 3 days Then take 300 mg 3 times a day Continued (DME) Wheeled Walker Misc See Rx Instructions .MEDSUPPLY Qty: 1 0RF Rx Instructions: As directed semaglutide 1 mg/dose (4 mg/3 mL) pen injector 1 mg subcut .WEEK multivitamin Tablet 1 tab PO HS citalopram [Celexa] 20 mg tablet 20 mg PO HS levothyroxine 150 mcg tablet 150 mcg PO QAM losartan [Cozaar] 25 mg tablet 25 mg PO HS vitamin B complex Tablet 1 tab PO QPM montelukast [Singulair] 10 mg tablet 10 mg PO HS bupropion HCl [Wellbutrin XL] 150 mg tablet extended release 24 hr 150 mg PO HS aspirin 81 mg tablet,delayed release (DR/EC) 81 mg PO BID 42 Days Qty: 0 0RF zolpidem [Ambien] 5 mg Tablet 5 mg PO HS PRN (Reason: sleep) Discharge Orders: Discharge Order (Routine); Ordered 05/05/22 Ordered By: Anthony Mast Admission Data Admit Date/Time: 05/04/22 09:44 Attending Provider: Anthony Mast Admit Provider: Anthony Mast Primary Care Provider: Familia Cox Other Providers: [facility],Home Health
[2022-05-05] MEDS ORDERED: dexAMETHasone 4 MG TAB PO SCH (08:00)
[2022-05-05] MEDS: ASPIRIN 81 MG ECTAB PO SCH (08:25)
[2022-05-05] MEDS: DOCUSATE SODIUM 100 MG CAP PO SCH (08:25)
[2022-05-05] MEDS: GABAPENTIN 100 MG CAP PO SCH ×2 (08:31→13:34)
[2022-05-05] MEDS ORDERED: MULTIVITAMIN TAB PO SCH (09:00)
[2022-05-05] MEDS ORDERED: LEVOTHYROXINE SODIUM 150 MCG TABLET PO SCH (09:00)
[2022-05-05] MEDS ORDERED: Nursing to Pharmacy Communication SCH ×2 (09:45→13:15)
[2022-05-05] MEDS ORDERED: KETOROLAC TROMETHAMINE 10 MG TABLET PO SCH (14:00)
== END 2022-05-05 14:55 | disposition home health service (06) ==
LOC: 3E 05:36 → ASU 05:36